=== PATIENT | male | born 1995 | race Caucasian/White ===

== ENCOUNTER → 2020-01-19 | Outpatient (CLI) | payer OTHER ==
[2014-05-17 06:01] VITALS: BP 151/65
[~2020-01-19] MED LIST: ASCO500T53 PO; Albuterol INH; CETI-17 PO; DIAZ5TAB4 PO; IBUP200T44 PO; MELA1TAB11 PO; MV-M1TAB19 PO; VORTIOXETINE 10 MG
[2020-01-20 03:10] LABS: ESTRADIOL LEVEL 42.1 pg/mL (7.6-42.6)
[2020-01-23 08:15] LABS: TESTOSTERONE FREE 15.07 ng/dL (5.00-21.00)
== END | disposition home or self-care (01) ==
LOC: LAB 16:17
PROVIDERS: ATTEND Physician Assistant
DX: R79.89 Other specified abnormal findings of blood chemistry (principal); R53.83 Other fatigue
CPT/HCPCS: 36415; 82626; 82670; 84402; 84403